=== PATIENT | male | born 1945 | race Two or more races ===

== ENCOUNTER 2024-11-14 12:32 | Outpatient (CLI) | payer OTHER | END 2024-11-14 12:40 | disposition home or self-care (01) | LOC: RAD 12:32 | PROVIDERS: ATTEND Family Medicine Geriatric Medicine | DX: I13.10 Hypertensive heart and chronic kidney disease without heart failure, with stage 1 through stage 4 chronic kidney disease, or unspecified chronic kidney disease (principal) ==